=== PATIENT | male | born 1955 | race Two or more races ===

== ENCOUNTER 2024-10-04 18:37 | Emergency (ER) | payer BC, SELFPAY ==
[2024-10-04 18:37] VITALS: BMI 27.9
--- NOTE | 2024-10-04 19:35 | XR_ITS ---
Examination: CTA abdomen, with intravenous contrast. CTA pelvis, with intravenous contrast. 2-D sagittal and coronal reconstructions. 3-D reconstructions. Date and time of exam: October 04, 2024 1119 hrs. Indications: Gastrointestinal bleeding beginning 2 days ago CTDI vol (mgy) 11.2 DLP (MGycm) 767 Technique: Multiple CTA images, 2.0 mm slice thickness, obtained chest, abdomen, pelvis, with the high-resolution 64 slice scanner. 100 cc Isovue-370 is administered intravenously. Sagittal and coronal 2-D reconstructions are obtained. 3-D reconstructions, angiographic images are obtained. 3-D postprocessing, including vascular maximum intensity projections. Low dose protocols were performed. One or more of the following dose reduction techniques were used; automated exposure control, adjustment of the mA and/or KV according to patient size, use of iterative reconstruction technique. Findings: Significant calcification left anterior descending coronary artery Mild enlargement cardiac contour Diffuse thickening of the gastric mucosa No focal liver or splenic lesion No gallstones No pancreatic mass Mild nodular thickening left adrenal gland No renal or ureteral calculi, no hydronephrosis Abundant air and stool throughout the colon Normal appendix Colonic diverticulosis No diverticulitis Urinary calcification no aneurysmal dilatation Transverse prostate dimension 5.8 cm Urinary bladder intact Fat-containing inguinal hernias Diffuse thoracic and lumbar degenerative disc disease Impression: Gastritis pattern No renal or ureteral calculi, no hydronephrosis No abnormal contrast extravasation in the gastrointestinal tract Abundant air and stool throughout the entire colon Colonic diverticulosis, no diverticulitis Moderate prostatomegaly
--- NOTE | 2024-10-04 19:37 | PD.EDGIBLD ---
ED GI Bleed RME/HPI General Chief complaint: Recheck/Abnormal Lab/Rx Stated complaint: SENT BY PCP FOR LOW HBG 6.1 Time Seen by Provider: 10/04/24 19:26 Arrival date/time: 10/04/24 18:37 RME / HPI RME / HPI Narrative: This section includes all my notes and documentations, including HPI, PE, and ED course. Jairo Pineda MD HPI: 68 y/o male with Hx of Type II DM and Hypertension presents to ED c/o Hemoglobin of 6.1 at PCP office x today. Patient denies any nausea or any associated symptoms. No hematemesis or coffee-ground emesis. No rectal bleeding or tarry stools. No abdominal pain. No unusual fatigue or malaise. No chest pain. No other complaints reported. ROS: All negative except as documented in HPI. Physical Exam: General: Alert and oriented. No acute distress when remaining still. Eyes: Conjunctivae and lids clear. ENT: No nasal congestion. Neck: Supple. Heart: RRR. Lungs: No respiratory distress. Good air movement. No rhonchi, wheezing, rales. Abdomen: Soft and nontender. Normal bowel sounds. No distension. No rebound or guarding. Back: No CVA tenderness. Skin: Warm and dry. Neuro: Alert and oriented X 3. I reviewed all diagnostic test results. My review of the CT report is NAD. Blood tests and urine tests remarkable for Hgb 7.1 and hyperglycemia. At this point, diagnoses include Severe anemia and Hyperglycemia due to diabetes mellitus. Treatment here included blood transfusion, Sodium Chloride (Ns), Insulin Human Regular Significant improvement noted. Recommended more outpatient workup. Based on my best medical judgment, made decision no further evaluation or treatment indicated at this time. Patient understands and agrees to the discharge instructions customized and printed, see below. Discharge Instructions from Dr. Pineda printed for you: 1. You were given blood transfusion for severe blood loss. The exact cause was not determined. 2. In case you are low in iron, increase food rich in iron. Such as red meat and egg yolks and seaweed. Your body needs iron to make blood. 3. In case you are losing blood in your stomach and intestines, take omeprazole every morning and famotidine every night. Until cleared by a doctor taking care of you. 4. See a private doctor on 10/08/2024 for recheck and further care. To make sure there is no serious intra-abdominal condition, ask for help with more investigation not available here in the ER. Such as EGD or scoping the stomach, colonoscopy or scoping the colon, and referral to see personal counselor. Ask for help to better manage your diabetes. Ask to review all test results and official radiology reports, to make sure you receive all necessary follow-ups and monitoring. 5. Seek immediate medical care with worsening or with any concerns. Instrucciones de noam del Dr. Pineda, impresas para usted: 1. Recibi? manohar transfusi?n de silas debido a manohar p?rdida de silas grave. No se gao determinado la causa exacta. 2. Si tiene niveles bajos de denis, aumente el consumo de alimentos ricos en denis, toñito yaquelin kent, yemas de huevo y algas marinas. Pete cuerpo necesita denis para producir silas. 3. Si presenta p?rdida de silas en el est?bk e intestinos, tome omeprazol todas las ma?anas y famotidina todas las noches hasta que el m?dico que lo atiende le d? el noam. 4. Consulte con un m?dico particular el 08/10/2024 para manohar nueva revisi?n y atenci?n adicional. Para asegurarse de que no haya manohar afecci?n intraabdominal grave, solicite ayuda con otras pruebas que no est?n disponibles en urgencias, toñito manohar endoscopia estomacal (EGD) o manohar endoscopia g?strica, manohar colonoscopia o manohar endoscopia de colon, y manohar derivaci?n a un gastroenter?logo. Solicite ayuda para controlar mejor pete diabetes. Solicite la revisi?n de todos los resultados de las pruebas y los informes radiol?gicos oficiales para asegurarse de recibir todo el seguimiento y la monitorizaci?n necesarios. 5. Busque atenci?n m?dica inmediata si presenta empeoramiento o cualquier inquietud. Jairo Pineda MD Related Data Previous Rx's ?Medication ?Instructions ?Recorded famotidine 40 mg tablet 40 mg PO .bedtime #30 tabs 10/05/24 omeprazole 40 mg capsule,delayed 40 mg PO QDAY #30 caps 10/05/24 release Allergies Allergy/AdvReac Type Severity Reaction Status Date / Time No Known Allergies Allergy Verified 10/04/24 18:39 Review of Systems Review of Systems Systems Reviewed: All systems reviewed, normal except as documented Narrative Review of Systems: Refer to HPI above. Past Medical History Past Medical History CARDIAC: Positive Hypertension ENDOCRINE: Positive Diabetes Mellitus Type 2 Surgical History SURGICAL: Positive Knee Sx Social History SMOKING STATUS: Never smoker ED Exam Narrative Physical exam: Refer to HPI above. Course Quality Measures none Orders Category Date Time Status CT Screening NOW Care 10/04/24 19:34 Completed Glucose [Bedside Blood Glucose] NOW Care 10/05/24 01:02 Completed Occult Blood,Stool (Nursing) NOW Care 10/04/24 19:35 Completed Saline [Insert IV] NOW Care 10/04/24 19:32 Completed Transfuse,blood/blood products NOW Care 10/04/24 19:[address] angio abdomen pelvis Stat Exams 10/04/24 19:35 Completed Bilirubin,Direct Stat Lab 10/04/24 20:00 Completed CBC Stat Lab 10/04/24 20:00 Completed CMP [Comprehensive Metabolic Panel] Stat Lab 10/04/24 20:00 Completed Free T4 (Free Thyroxine) Stat Lab 10/04/24 20:00 Completed Hemoglobin and Hematocrit Stat Lab 10/05/24 03:55 Completed Lipase Stat Lab 10/04/24 20:00 Completed Magnesium Stat Lab 10/04/24 20:00 Completed Occult Blood, Stool (LAB) Stat Lab 10/05/24 01:12 Completed PT [Prothrombin Time with INR] Stat Lab 10/04/24 20:00 Completed PTT [Partial Thromboplastin Time] Stat Lab 10/04/24 20:00 Completed TSH [Thyroid Stimulating Hormone] Stat Lab 10/04/24 20:00 Completed Type and Screen Stat Lab 10/04/24 20:00 Completed prbc [Red Blood Cells] Stat Lab 10/04/24 20:00 Completed Famotidine Inj [Pepcid Inj] Med 10/05/24 01:00 Discontinued 20 mg IVP X1 ONE Insulin Regular Med 10/04/24 21:09 Discontinued 5 unit IV X1 ONE Pantoprazole Inj [Protonix Inj] Med 10/05/24 01:00 Discontinued 80 mg IVP X1 ONE Sodium Chloride 0.9% 1000 ml [Ns] 1,000 ml Med 10/04/24 19:32 Discontinued IV 999 mls/hr Vital Signs Vital signs: Vital Signs Temperature 98.4 F 10/04/24 19:51 Pulse Rate 96 10/04/24 19:51 Respiratory Rate 18 10/04/24 19:51 Blood Pressure 170/65 H 10/04/24 19:51 Pulse Oximetry (%) 97 10/04/24 19:51 Oxygen Delivery Method Room Air 10/04/24 19:51 GI Bleed MDM Narrative MDM Narrative:: Scribe Attestation: Hilda Sin am scribing for and in the presence of Dr. Pineda. Provider Notation: Although this document has been carefully reviewed, there may still be some phonetic and other typographical errors. These errors are purely grammatical due to imperfections in the software program and should not be construed in any way to compromise the substance of the patient's medical care during this visit. Patient data External records reviewed:: [facility] previous records (Prior ED records from 03/05/22. Patient was seen for Hypoxia.) Clinical information provided by:: patient Social determinants that could affect healthcare access:: none Patient has the following chronic illnesses:: Hypertension, Type II DM How is presenting disease/condition affected by chronic disease/condition?: exacerbated by Evaluation data The following diagnostics were reviewed and interpreted by me:: lab results and radiology exam(s) Lab and/or radiology exams considered but not ordered:: None Interpretation Summary: Severe anemia and hyperglycemia Medications / Prescriptions Medications or Prescriptions considered but not ordered:: None Medication administrations:: Medication Administration History Discontinued Medications Famotidine (Famotidine Inj 10 Mg/Ml Vial 2 Ml) 20 mg IVP X1 ONE Stop: 10/05/24 01:01 Last Admin: 10/05/24 01:19 Dose: 20 mg Documented By: ALBERT Sodium Chloride (Ns) 1,000 mls @ 999 mls/hr IV .Q1H1M ONE Stop: 10/04/24 20:32 Last Infusion: 10/04/24 21:08 Dose: Infused Documented By: Admin: 10/04/24 20:07 Dose: 999 mls/hr Documented By: DINORA Insulin Human Regular (Insulin Hum Regular 1 Unit/0.01 Ml (Per Unit)) 5 unit IV X1 ONE Stop: 10/04/24 21:10 Last Admin: 10/04/24 21:20 Dose: 5 unit Documented By: DINORA Co-signed By: ALBERT Pantoprazole Sodium (Pantoprazole Inj 40 Mg Vial) 80 mg IVP X1 ONE Stop: 10/05/24 01:01 Last Admin: 10/05/24 01:19 Dose: 80 mg Documented By: ALBERT Blood transfusion, Sodium Chloride (Ns), Insulin Human Regular, Famotidine, Pantoprazole Consultations Consultation(s) initiated? (list below): No Diagnosis GI bleed differential diagnosis: hemorrhoids, esophageal varices, gastritis, Jacquie-Munoz syndrome, Upper gastrointestinal hemorrhage, Lower gastrointestinal hemorrhage, hematochezia, melena and anal fissure Most likely diagnosis given after review of the tests above:: Severe anemia, Hyperglycemia due to diabetes mellitus Admission Indicated Admission indicated?: not indicated Explain why admission is indicated or not indicated:: With significant improvement, there was no indication for admission. Admission Request Was there a request for admission?: No Disposition Plan Disposition Plan: Discharge Discharge Attestation Discharge Attestation: The patient and all family members were given an opportunity to ask questions and understood the discharge instructions. Discharge instructions specifically effects, indications for sooner follow up or return to the emergency department, and the expected course of current diagnosis. Patient condition: Stable Discharge Plan Plan Patient Disposition: HOME (Self Care) Prescriptions/Referrals Prescriptions/Med Rec: New famotidine 40 mg tablet 40 mg PO .bedtime Qty: 30 0RF omeprazole 40 mg capsule,delayed release(DR/EC) 40 mg PO QDAY Qty: 30 0RF Referrals: No Primary/Family,Physician [Primary Care Provider] - In 1 week Problem List Clinical Impression: Severe anemia, Hyperglycemia due to diabetes mellitus Patient/Caregiver Discharge Instructions Discharge Activity: activity as tolerated Education Materials: ED Anemia Type Not Specified, ED Diabetes with High Blood Sugar Additional Instructions: Discharge Instructions from Dr. Pineda printed for you: 1. You were given blood transfusion for severe blood loss. The exact cause was not determined. 2. In case you are low in iron, increase food rich in iron. Such as red meat and egg yolks and seaweed. Your body needs iron to make blood. 3. In case you are losing blood in your stomach and intestines, take omeprazole every morning and famotidine every night. Until cleared by a doctor taking care of you. 4. See a private doctor on 10/08/2024 for recheck and further care. To make sure there is no serious intra-abdominal condition, ask for help with more investigation not available here in the ER. Such as EGD or scoping the stomach, colonoscopy or scoping the colon, and referral to see personal counselor. Ask for help to better manage your diabetes. Ask to review all test results and official radiology reports, to make sure you receive all necessary follow-ups and monitoring. 5. Seek immediate medical care with worsening or with any concerns. Instrucciones de noam del Dr. Pineda, impresas para usted: 1. Recibi? manohar transfusi?n de silas debido a manohar p?rdida de silas grave. No se gao determinado la causa exacta. 2. Si tiene niveles bajos de denis, aumente el consumo de alimentos ricos en denis, toñito yaquelin kent, yemas de huevo y algas marinas. Pete cuerpo necesita denis para producir silas. 3. Si presenta p?rdida de silas en el est?bk e intestinos, tome omeprazol todas las ma?anas y famotidina todas las noches hasta que el m?dico que lo atiende le d? el noam. 4. Consulte con un m?dico particular el 08/10/2024 para manohar nueva revisi?n y atenci?n adicional. Para asegurarse de que no haya manohar afecci?n intraabdominal grave, solicite ayuda con otras pruebas que no est?n disponibles en urgencias, toñito manohar endoscopia estomacal (EGD) o manohar endoscopia g?strica, manohar colonoscopia o manohar endoscopia de colon, y manohar derivaci?n a un gastroenter?logo. Solicite ayuda para controlar mejor pete diabetes. Solicite la revisi?n de todos los resultados de las pruebas y los informes radiol?gicos oficiales para asegurarse de recibir todo el seguimiento y la monitorizaci?n necesarios. 5. Busque atenci?n m?dica inmediata si presenta empeoramiento o cualquier inquietud. Print Language: Citizen Of [place] Stand Alone Forms: Venita Award Info., Patient Portal Info Letter
[2024-10-04 19:51] VITALS: BP 170/65; PULSE 96; RESP 18; TEMP 36.9; O2SAT 97
[2024-10-04] MEDS: SODIUM CHLORIDE 0.9% 1000 ML 1,000 ML 999 ML IV (20:07)
[2024-10-04 20:16] LABS: Basophils # (Auto) 0.1 Thou/mm3 (0.0-0.2); Basophils % (Auto) 1 % (0-2.5); Eosinophils % (Auto) 0 % (0-10); Hematocrit 24.8 % (41.0-53.0); Immature Granulocytes % (Auto) 1 % (0-0); Immature Granulocytes Auto 0.04 Thou/mm3 (0.00-0.00); Lymphocytes # (Auto) 0.9 Thou/mm3 (1.0-4.8); Lymphocytes % (Auto) 11 % (10-50); Mean Corpuscular HGB Conc 28.6 g/dl (31.0-37.0); Mean Corpuscular Hemoglobin 17.8 pg (25.0-35.0); Mean Corpuscular Volume 62 fL (80-100); Monocytes # (Auto) 0.4 Thou/mm3 (0.0-0.8); Monocytes % (Auto) 6 % (0-12); Neutrophils # (Auto) 6.6 Thou/mm3 (1.8-7.7); Neutrophils % (Auto) 82 % (37-80); Nucleated Red Blood Cell % 0 /100 WBC (0); Platelet Count 454 Thou/mm3 (140-440); RDW Standard Deviation 42.9 fL (35.1-43.9); Red Blood Count 3.98 Miln/mm3 (4.50-5.90)
[2024-10-04 20:26] LABS: Hemoglobin 7.1 g/dL (13.5-16.0)
[2024-10-04 20:40] LABS: Partial Thromboplastin Time 26.5 Seconds (22.0-36.0); Prothrombin Time 10.8 Seconds (9.0-12.2)
[2024-10-04 20:55] LABS: Alanine Aminotransferase 20 U/L (10-49); Albumin, Serum 4.3 gm/dL (3.4-4.8); Albumin/Globulin Ratio 1.5 (1.2-2.2); Alkaline Phosphatase 141 U/L (46-116); Anion Gap 8 (7-16); Aspartate Amino Transferase 14 U/L (0-34); BUN/Creatinine Ratio 15 Ratio (12-20); Bilirubin,Direct 0.1 mg/dL (0.0-0.3); Bilirubin,Total 0.3 mg/dL (0.3-1.2); Blood Urea Nitrogen 17 mg/dL (9-23); Calcium 9.1 mg/dL (8.3-10.6); Calcium (Corrected) 9.1 mg/dL (8.5-10.1); Carbon Dioxide 23.6 mMol/L (20.0-31.0); Chloride 101 mMol/L (98-107); Creatinine (Component) 1.1 mg/dL (0.6-1.3); Estimated Creatinine Clearance 65.8 mL/min (>60); Free T4 (Free Thyroxine) 1.16 ng/dL (0.89-1.76); Globulin 2.9 gm/dL (2.3-3.5); Lipase 51 U/L (12-53); Magnesium 2.1 mg/dL (1.6-2.6); Osmolality,Calculated 286 (275-295); Potassium 4.9 mMol/L (3.4-5.1); Sodium 133 mMol/L (136-145); Total Protein 7.2 gm/dL (5.7-8.2); eGFR > 60 See Note
[2024-10-04 20:57] LABS: Glucose 432 mg/dL (74-106)
[2024-10-04 21:12] VITALS: BP 167/67; PULSE 90; RESP 20; TEMP 36.8; O2SAT 97
[2024-10-04] MEDS: INSULIN HUM REGULAR 1 UNIT/0.01 ML (PER UNIT) 5 UNIT IV (21:20)
[2024-10-04 22:30] VITALS: BP 176/65; PULSE 81; RESP 18; TEMP 36.6
[2024-10-04 22:45] VITALS: BP 166/67; PULSE 78; RESP 19; TEMP 36.8; O2SAT 98
[2024-10-04 23:00] VITALS: BP 160/67; PULSE 76; RESP 20; TEMP 36.6; O2SAT 98
[2024-10-05 01:11] VITALS: BP 150/62; PULSE 67; RESP 19; TEMP 36.4; O2SAT 98
[2024-10-05] MEDS: PANTOPRAZOLE INJ 40 MG VIAL 80 MG IVP (01:19)
[2024-10-05] MEDS: FAMOTIDINE INJ 10 MG/ML VIAL 2 ML 20 MG IVP (01:19)
[2024-10-05 01:50] VITALS: BP 167/75; PULSE 70; RESP 19; TEMP 36.5
[2024-10-05 02:05] VITALS: BP 169/79; PULSE 71; RESP 15; TEMP 36.5; O2SAT 100
[2024-10-05 02:20] VITALS: BP 162/78; PULSE 71; RESP 17; TEMP 36.5; O2SAT 99
[2024-10-05 03:01] LABS: OBS Developer Expiration Date 12312025; OBS Performed By ESTRE4; OBS QC OK? Yes
[2024-10-05 03:30] LABS: Occult Blood, Stool Positive (Negative)
[2024-10-05 03:53] VITALS: BP 175/82; PULSE 77; RESP 20; TEMP 36.5; O2SAT 100
[2024-10-05 03:54] VITALS: BP 175/82; PULSE 77; RESP 19; TEMP 36.5
[2024-10-05 04:06] LABS: Hematocrit 31.6 % (41.0-53.0); Hemoglobin 9.5 g/dL (13.5-16.0)
== END 2024-10-05 04:27 | disposition home or self-care (01) ==
PROVIDERS: Emergency Provider Emergency Medicine
DX: D64.9 Anemia, unspecified (principal); E11.65 Type 2 diabetes mellitus with hyperglycemia
CPT/HCPCS: 36415; 36430; 74174; 80053; 82248; 82270; 83690; 83735; 84439; 84443; 85014; 85018; 85025; 85610; 85730; 86850; 86900; 86901; 86923; 96361; 96374; 96375; 99285; A4649; J1815; J2470; J3490; J7030; P9016; Q9967

== ENCOUNTER → 2025-01-08 | Outpatient (CLI) | payer BC, SELFPAY | END | disposition home or self-care (01) | LOC: SWHD 13:50 | PROVIDERS: PCP Physician Assistant; Referring Provider Physician Assistant; Visit Provider Student in an Organized Health Care Education/Training Program | DX: I96 Gangrene, not elsewhere classified (principal); L97.529 Non-pressure chronic ulcer of other part of left foot with unspecified severity; L97.519 Non-pressure chronic ulcer of other part of right foot with unspecified severity; S91.101A Unspecified open wound of right great toe without damage to nail, initial encounter; S91.105A Unspecified open wound of left lesser toe(s) without damage to nail, initial encounter; X58.XXXA Exposure to other specified factors, initial encounter; I10 Essential (primary) hypertension; D64.9 Anemia, unspecified; E11.649 Type 2 diabetes mellitus with hypoglycemia without coma; Z79.4 Long term (current) use of insulin | CPT/HCPCS: 99215; A9270; G0463 ==

== ENCOUNTER → 2025-01-15 | Outpatient (CLI) | payer BC, SELFPAY | END | disposition home or self-care (01) | LOC: SWHD 14:41 | PROVIDERS: PCP Physician Assistant; Referring Provider Physician Assistant; Visit Provider Student in an Organized Health Care Education/Training Program | DX: I96 Gangrene, not elsewhere classified (principal); L97.529 Non-pressure chronic ulcer of other part of left foot with unspecified severity; L97.522 Non-pressure chronic ulcer of other part of left foot with fat layer exposed; S91.101A Unspecified open wound of right great toe without damage to nail, initial encounter; S91.105A Unspecified open wound of left lesser toe(s) without damage to nail, initial encounter; X58.XXXA Exposure to other specified factors, initial encounter; I10 Essential (primary) hypertension; D64.9 Anemia, unspecified; E11.649 Type 2 diabetes mellitus with hypoglycemia without coma; Z79.84 Long term (current) use of oral hypoglycemic drugs | CPT/HCPCS: 11042; A9270 ==

== ENCOUNTER → 2025-01-24 | Outpatient (CLI) | payer BC, SELFPAY | END | disposition home or self-care (01) | LOC: SWHD 15:05 | PROVIDERS: PCP Physician Assistant; Referring Provider Physician Assistant; Visit Provider Student in an Organized Health Care Education/Training Program | DX: I96 Gangrene, not elsewhere classified (principal); L97.522 Non-pressure chronic ulcer of other part of left foot with fat layer exposed; S91.101A Unspecified open wound of right great toe without damage to nail, initial encounter; S91.105A Unspecified open wound of left lesser toe(s) without damage to nail, initial encounter; X58.XXXA Exposure to other specified factors, initial encounter; I10 Essential (primary) hypertension; D64.9 Anemia, unspecified; E11.649 Type 2 diabetes mellitus with hypoglycemia without coma; Z79.84 Long term (current) use of oral hypoglycemic drugs | CPT/HCPCS: 97597; 17250 ==

== ENCOUNTER → 2025-01-31 | Outpatient (CLI) | payer BC, SELFPAY | END | disposition home or self-care (01) | LOC: SWHD 14:33 | PROVIDERS: PCP Physician Assistant; Referring Provider Physician Assistant; Visit Provider Student in an Organized Health Care Education/Training Program | DX: I96 Gangrene, not elsewhere classified (principal); L97.522 Non-pressure chronic ulcer of other part of left foot with fat layer exposed; S91.101A Unspecified open wound of right great toe without damage to nail, initial encounter; S91.105A Unspecified open wound of left lesser toe(s) without damage to nail, initial encounter; X58.XXXA Exposure to other specified factors, initial encounter; I10 Essential (primary) hypertension; D64.9 Anemia, unspecified; E11.649 Type 2 diabetes mellitus with hypoglycemia without coma; Z79.84 Long term (current) use of oral hypoglycemic drugs | CPT/HCPCS: 99213; G0463 ==

== ENCOUNTER → 2025-03-21 | Outpatient (CLI) | payer BC, SELFPAY | END | disposition home or self-care (01) | PROVIDERS: PCP Physician Assistant; Referring Provider Physician Assistant; Visit Provider Student in an Organized Health Care Education/Training Program | DX: I96 Gangrene, not elsewhere classified (principal); S91.101A Unspecified open wound of right great toe without damage to nail, initial encounter; S91.105A Unspecified open wound of left lesser toe(s) without damage to nail, initial encounter; X58.XXXA Exposure to other specified factors, initial encounter; L97.528 Non-pressure chronic ulcer of other part of left foot with other specified severity; I10 Essential (primary) hypertension; D64.9 Anemia, unspecified; E11.649 Type 2 diabetes mellitus with hypoglycemia without coma; Z79.84 Long term (current) use of oral hypoglycemic drugs | CPT/HCPCS: 11042 ==

== ENCOUNTER → 2025-03-28 | Outpatient (CLI) | payer BC, SELFPAY | END | disposition home or self-care (01) | LOC: SWHD 14:51 | PROVIDERS: PCP Physician Assistant; Referring Provider Physician Assistant; Visit Provider Student in an Organized Health Care Education/Training Program | DX: I96 Gangrene, not elsewhere classified (principal); S91.101A Unspecified open wound of right great toe without damage to nail, initial encounter; S91.105A Unspecified open wound of left lesser toe(s) without damage to nail, initial encounter; X58.XXXA Exposure to other specified factors, initial encounter; L97.522 Non-pressure chronic ulcer of other part of left foot with fat layer exposed; I10 Essential (primary) hypertension; D64.9 Anemia, unspecified; E11.649 Type 2 diabetes mellitus with hypoglycemia without coma; Z79.84 Long term (current) use of oral hypoglycemic drugs | CPT/HCPCS: 97597 ==

== ENCOUNTER → 2025-04-11 | Outpatient (CLI) | payer BC, SELFPAY | END | disposition home or self-care (01) | LOC: SWHD 14:58 | PROVIDERS: PCP Physician Assistant; Referring Provider Physician Assistant; Visit Provider Student in an Organized Health Care Education/Training Program | DX: I96 Gangrene, not elsewhere classified (principal); S91.102A Unspecified open wound of left great toe without damage to nail, initial encounter; S91.105A Unspecified open wound of left lesser toe(s) without damage to nail, initial encounter; X58.XXXA Exposure to other specified factors, initial encounter; L97.522 Non-pressure chronic ulcer of other part of left foot with fat layer exposed; I10 Essential (primary) hypertension; D64.9 Anemia, unspecified; E11.649 Type 2 diabetes mellitus with hypoglycemia without coma; Z79.84 Long term (current) use of oral hypoglycemic drugs | CPT/HCPCS: 11042; A9270 ==

== ENCOUNTER → 2025-04-19 | Outpatient (CLI) | payer BC, SELFPAY | END | disposition home or self-care (01) | PROVIDERS: PCP Physician Assistant; Referring Provider Physician Assistant; Visit Provider Surgery | DX: I96 Gangrene, not elsewhere classified (principal); S91.101A Unspecified open wound of right great toe without damage to nail, initial encounter; S91.105A Unspecified open wound of left lesser toe(s) without damage to nail, initial encounter; X58.XXXA Exposure to other specified factors, initial encounter; L97.522 Non-pressure chronic ulcer of other part of left foot with fat layer exposed; I10 Essential (primary) hypertension; D64.9 Anemia, unspecified; E11.649 Type 2 diabetes mellitus with hypoglycemia without coma; Z79.84 Long term (current) use of oral hypoglycemic drugs | CPT/HCPCS: 99213; A9270; G0463 ==

== ENCOUNTER → 2025-05-03 | Outpatient (CLI) | payer BC, SELFPAY | END | disposition home or self-care (01) | LOC: SWHD 14:36 | PROVIDERS: PCP Physician Assistant; Referring Provider Physician Assistant; Visit Provider Surgery | DX: I96 Gangrene, not elsewhere classified (principal); S91.101A Unspecified open wound of right great toe without damage to nail, initial encounter; S91.105A Unspecified open wound of left lesser toe(s) without damage to nail, initial encounter; X58.XXXA Exposure to other specified factors, initial encounter; L97.522 Non-pressure chronic ulcer of other part of left foot with fat layer exposed; D64.9 Anemia, unspecified; E11.649 Type 2 diabetes mellitus with hypoglycemia without coma; Z79.84 Long term (current) use of oral hypoglycemic drugs | CPT/HCPCS: 99213; G0463 ==

== ENCOUNTER → 2025-05-10 | Outpatient (CLI) | payer BC, SELFPAY | END | disposition home or self-care (01) | LOC: SWHD 14:52 | PROVIDERS: PCP Physician Assistant; Referring Provider Physician Assistant; Visit Provider Surgery | DX: I96 Gangrene, not elsewhere classified (principal); S91.101A Unspecified open wound of right great toe without damage to nail, initial encounter; S91.105A Unspecified open wound of left lesser toe(s) without damage to nail, initial encounter; X58.XXXA Exposure to other specified factors, initial encounter; L97.522 Non-pressure chronic ulcer of other part of left foot with fat layer exposed; D64.9 Anemia, unspecified; E11.649 Type 2 diabetes mellitus with hypoglycemia without coma; Z79.84 Long term (current) use of oral hypoglycemic drugs | CPT/HCPCS: 99213; G0463 ==

== ENCOUNTER → 2025-05-15 | Outpatient (CLI) | payer BC, SELFPAY | END | disposition home or self-care (01) | LOC: SWHD 13:20 | PROVIDERS: PCP Physician Assistant; Referring Provider Physician Assistant; Visit Provider Student in an Organized Health Care Education/Training Program | DX: I96 Gangrene, not elsewhere classified (principal); S91.101A Unspecified open wound of right great toe without damage to nail, initial encounter; S91.105A Unspecified open wound of left lesser toe(s) without damage to nail, initial encounter; X58.XXXA Exposure to other specified factors, initial encounter; L97.522 Non-pressure chronic ulcer of other part of left foot with fat layer exposed; D64.9 Anemia, unspecified; E11.649 Type 2 diabetes mellitus with hypoglycemia without coma; Z79.84 Long term (current) use of oral hypoglycemic drugs | CPT/HCPCS: 97597 ==

== ENCOUNTER → 2025-05-22 | Outpatient (CLI) | payer BC, SELFPAY | END | disposition home or self-care (01) | LOC: SWHD 15:22 | PROVIDERS: PCP Physician Assistant; Referring Provider Physician Assistant; Visit Provider Student in an Organized Health Care Education/Training Program | DX: I96 Gangrene, not elsewhere classified (principal); S91.101A Unspecified open wound of right great toe without damage to nail, initial encounter; S91.105A Unspecified open wound of left lesser toe(s) without damage to nail, initial encounter; X58.XXXA Exposure to other specified factors, initial encounter; L97.522 Non-pressure chronic ulcer of other part of left foot with fat layer exposed; D64.9 Anemia, unspecified; E11.621 Type 2 diabetes mellitus with foot ulcer; Z79.84 Long term (current) use of oral hypoglycemic drugs | CPT/HCPCS: 99213; A9270; G0463 ==

== ENCOUNTER → 2025-05-31 | Outpatient (CLI) | payer BC, SELFPAY ==
[2025-05-31 11:50] LABS: Basophils # (Auto) 0.1 Thou/mm3 (0.0-0.2); Basophils % (Auto) 1 % (0-2.5); Eosinophils # (Auto) 0.3 Thou/mm3 (0.0-0.5); Eosinophils % (Auto) 2 % (0-10); Hematocrit 31.2 % (41.0-53.0); Hemoglobin 9.2 g/dL (13.5-16.0); Immature Granulocytes Auto 0.09 Thou/mm3 (0.00-0.00); Lymphocytes # (Auto) 2.8 Thou/mm3 (1.0-4.8); Lymphocytes % (Auto) 24 % (10-50); Mean Corpuscular HGB Conc 29.5 g/dl (31.0-37.0); Mean Corpuscular Hemoglobin 21.9 pg (25.0-35.0); Mean Corpuscular Volume 74 fL (80-100); Monocytes # (Auto) 0.8 Thou/mm3 (0.0-0.8); Monocytes % (Auto) 7 % (0-12); Neutrophils # (Auto) 7.5 Thou/mm3 (1.8-7.7); Neutrophils % (Auto) 65 % (37-80); Nucleated Red Blood Cell # 0.00 Thou/mm3 (0.00-0.00); Nucleated Red Blood Cell % 0 /100 WBC (0); Platelet Count 458 Thou/mm3 (140-440); RDW Standard Deviation 47.4 fL (35.1-43.9); Red Blood Count 4.20 Miln/mm3 (4.50-5.90); White Blood Count 11.5 Thou/mm3 (3.8-10.6)
[2025-05-31 12:08] LABS: Sed Rate (ESR) 70 mm/hr (0-20)
[2025-05-31 12:39] LABS: Glucose Estimated Average 189 mg/dL (80-131); Hemoglobin A1C 8.2 % Hgb (4.8-6.0)
[2025-05-31 15:56] LABS: Alanine Aminotransferase 21 U/L (10-49); Albumin, Serum 4.7 gm/dL (3.4-4.8); Albumin/Globulin Ratio 1.5 (1.2-2.2); Alkaline Phosphatase 144 U/L (46-116); Anion Gap 11 (7-16); Aspartate Amino Transferase 14 U/L (0-34); BUN/Creatinine Ratio 15 Ratio (12-20); Bilirubin,Total 0.2 mg/dL (0.3-1.2); Blood Urea Nitrogen 12 mg/dL (9-23); Calcium 10.1 mg/dL (8.3-10.6); Calcium (Corrected) 10.1 mg/dL (8.5-10.1); Carbon Dioxide 26.0 mMol/L (20.0-31.0); Chloride 98 mMol/L (98-107); Creatinine (Component) 0.8 mg/dL (0.6-1.3); Globulin 3.1 gm/dL (2.3-3.5); Glucose 117 mg/dL (74-106); Osmolality,Calculated 270 (275-295); Potassium 4.2 mMol/L (3.4-5.1); Sodium 135 mMol/L (136-145); Total Protein 7.8 gm/dL (5.7-8.2); eGFR > 60 See Note
[2025-05-31 22:06] LABS: C-Reactive Protein 1.2 mg/dL (0.0-0.9)
== END | disposition home or self-care (01) ==
LOC: COPL 11:09
PROVIDERS: PCP Physician Assistant; Referring Provider Student in an Organized Health Care Education/Training Program; Visit Provider Student in an Organized Health Care Education/Training Program
DX: E11.621 Type 2 diabetes mellitus with foot ulcer (principal)
CPT/HCPCS: 36415; 80053; 83036; 85025; 85652; 86140

== ENCOUNTER 2025-06-05 07:54 | Outpatient (RCR) | payer BC, SELFPAY | END 2025-06-19 23:59 | disposition home or self-care (01) | LOC: SWHD 07:54 | PROVIDERS: PCP Physician Assistant; Referring Provider Physician Assistant; Visit Provider Student in an Organized Health Care Education/Training Program | DX: I96 Gangrene, not elsewhere classified (principal); S91.101A Unspecified open wound of right great toe without damage to nail, initial encounter; S91.105A Unspecified open wound of left lesser toe(s) without damage to nail, initial encounter; X58.XXXA Exposure to other specified factors, initial encounter; L97.521 Non-pressure chronic ulcer of other part of left foot limited to breakdown of skin; D64.9 Anemia, unspecified; E11.621 Type 2 diabetes mellitus with foot ulcer; Z79.84 Long term (current) use of oral hypoglycemic drugs | CPT/HCPCS: 97597; 82962; 99212; 99214; G0277; G0463 ==